=== PATIENT | female | born 1995 | race Caucasian/White ===

== ENCOUNTER 2017-08-08 15:13 | Emergency (ER) | payer OTHER ==
[2017-08-08 15:26] VITALS: PULSE 84; TEMP 98.1; O2SAT 99
[2017-08-08 16:41] VITALS: BP 106/86; RESP 18
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
--- NOTE | 2017-08-08 17:59 | RAD ---
PROCEDURE: Right Hand Radiographs. HISTORY: hand injury pain to 5th metacarp, pain lat wri COMPARISON: None. FINDINGS: BONES: Normal. No fracture. JOINTS: Normal. No osteoarthritic changes. SOFT TISSUES: Normal. OTHER FINDINGS: None. IMPRESSION: No evidence of acute displaced fracture nor dislocation. If symptoms persist or occult fracture suspected clinically consider repeat radiographs in 5-10 days as most fractures should become radiographically evident this timeframe. Normal right hand radiographs.
== END 2017-08-08 17:10 | disposition home or self-care (01) ==
LOC: C.ER 15:13
DX: S60.211A Contusion of right wrist, initial encounter (principal); W22.8XXA Striking against or struck by other objects, initial encounter; R45.4 Irritability and anger

== ENCOUNTER 2019-02-27 16:35 | Emergency (ER) | payer OTHER ==
[2019-02-27 16:45] VITALS: BMI 18.0
[2019-02-27 17:32] VITALS: O2SAT 99
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
[2019-02-27 18:28] VITALS: BP 116/69; PULSE 79; RESP 20; TEMP 98.2
== END 2019-02-27 18:28 | disposition home or self-care (01) ==
LOC: C.ER 16:35
DX: M79.602 Pain in left arm (principal); M79.605 Pain in left leg